=== PATIENT | female | born 1985 | race Caucasian/White ===

== ENCOUNTER 2019-02-23 16:55 | Outpatient (CLI) | payer OTHER ==
[~2019-02-23] VITALS: Ht 160 cm; Wt 125.9 kg
[~2019-02-23 16:55] MED LIST: CIPRO500 MG PO; MOTRIN 600600 MG/TAB PO; NO HOME MEDICATIONS; PERCOCET 325 MG1 TA2 PO; PHENERGAN 25 TA25 MG PO; PHENERGAN25 MG RC; PRENATAL1 TA1 PO
--- NOTE | 2019-02-23 17:00 | NUR ---
Patient ambulatory to unit alone. Patient states she has been feeling pressure in her vagina and her abodmen off and on all day. Patient denies vaginal bleeding but states she has not mucous discharge. Denies leaking of fluid and states baby has been active. G2L1, 40 weeks gestation. Denies any complications but is GBS +. SVE by Lyly Edwards RN /-2. FHR and contraction monitors placed and explained. Assessment completed.
[2019-02-23 17:06] VITALS: BP 126/60; PULSE 99; TEMP 98.9
--- NOTE | 2019-02-23 17:55 | NUR ---
Patient discharge instructions reviewed with her. Verbalizes understanding.
== END 2019-02-23 18:00 | disposition home or self-care (01) ==
LOC: LDRO 16:55 → LDR 17:00 → LDRO 18:00
DX: O99.89 Other specified diseases and conditions complicating pregnancy, childbirth and the puerperium (principal); R10.2 Pelvic and perineal pain; Z3A.40 40 weeks gestation of pregnancy
CPT/HCPCS: OP

== ENCOUNTER 2019-02-27 08:30 | Inpatient (IN) | payer OTHER ==
[2019-02-27] VITALS (38 sets, daily range): BP systolic 121–153; BP diastolic 55–82; PULSE 82–118; TEMP 97.9–98.2
[~2019-02-27] VITALS: Ht 162.6 cm; Wt 125.9 kg
[2019-02-27 10:35] LABS: BASO % 0.2 % (0.0-2.0); EOS # 0.1 (0.0-0.7); EOS % 0.6 % (0-4.0); GRAN # 8.1 (1.4-6.5); GRAN % 77.1 % (42.2-75.2); HEMATOCRIT 39.6 % (37.0-47.0); HEMOGLOBIN 13.1 g/dl (12.5-16.0); LYMPH # 1.7 (1.2-3.4); LYMPH % 16.6 % (20.0-51.0); MEAN CELL VOLUME 85 fl (80.0-100.0); MEAN CORPUSCULAR HEMOGLOBIN 28 pg (27.0-31.0); MEAN CORPUSCULAR HGB CONC 33 g/dl (33.0-37.0); MONO # 0.5 (0.1-0.6); MONO % 4.4 % (1.7-9.3); PLATELET COUNT 228 K/mm3 (130-400); RED BLOOD COUNT 4.66 M/mm3 (4.10-5.30); REDCELL DISTRIBUTION WIDTH-CV 14.9 % (11.5-14.5)
[2019-02-27 11:08] LABS: ALBUMIN 3.4 gm/dL (3.5-5.0); BILIRUBIN,TOTAL 0.2 mg/dL (0.0-1.0); CALCIUM 8.8 mg/dL (8.4-10.2); CREATININE, serum 0.5 (0.52-1.25); POTASSIUM 3.7 mmol/L (3.4-5.0); TOTAL PROTEIN 6.4 gm/dL (6.4-8.2)
[2019-02-28 00:01] VITALS: BP 111/62; PULSE 95; TEMP 98.2
[2019-02-28 04:24] VITALS: BP 118/63; PULSE 94; TEMP 98.1
[2019-02-28 07:59] VITALS: BP 136/82; PULSE 97; TEMP 98.4
[2019-02-28 11:56] VITALS: BP 138/59; PULSE 90; TEMP 98.2
[2019-02-28 16:00] VITALS: BP 131/57; PULSE 94; TEMP 97.9
[2019-02-28 20:30] VITALS: BP 117/63; PULSE 91; TEMP 98
[2019-03-01 08:00] VITALS: BP 148/81; PULSE 93; TEMP 98.8
[2019-03-01] MEDS ORDERED: IBU800 M1 PO (08:44)
[2019-03-01 12:00] VITALS: BP 130/58; PULSE 89
== END 2019-03-01 14:25 | disposition home or self-care (01) | DRG 807 ==
LOC: LDR 08:30 → OB 09:46
PROVIDERS: ADMIT Student in an Organized Health Care Education/Training Program
PROC: 10E0XZZ Delivery of Products of Conception, External Approach (ICD-10-PCS; principal; 2019-02-27)
PROC: 3E033VJ Introduction of Other Hormone into Peripheral Vein, Percutaneous Approach (ICD-10-PCS; 2019-02-27)
PROC: 10907ZC Drainage of Amniotic Fluid, Therapeutic from Products of Conception, Via Natural or Artificial Opening (ICD-10-PCS; 2019-02-27)
DX: O99.824 Streptococcus B carrier state complicating childbirth (principal); Z37.0 Single live birth; Z3A.40 40 weeks gestation of pregnancy; O76 Abnormality in fetal heart rate and rhythm complicating labor and delivery; O99.214 Obesity complicating childbirth; E66.01 Morbid (severe) obesity due to excess calories; O69.3XX0 Labor and delivery complicated by short cord, not applicable or unspecified
CPT/HCPCS: J2540; J2590; J3010; J7120